=== PATIENT | female | born 1950 | race Caucasian/White ===

== ENCOUNTER 2022-02-18 11:09 | Emergency (ER) | payer MEDICARE, MEDICAID, SELFPAY ==
[2022-02-18] VITALS (25 sets, daily range): BP systolic 88–133; BP diastolic 39–89; PULSE 75–204; RESP 10–23; TEMP 37.2; O2SAT 95–97
--- NOTE | 2022-02-18 11:00 | RT.EKG_ITS ---
APPROVED REPORT Exam: Resting ECG Reason for Exam: Syncope Patient Location: E HR:185 bpm ECG Measurements Heart Rate [address] 62 P 0 QRSd 88 QRS 18 QT 278 T -25 QTc 488 Conclusion Supraventricular tachycardia...V-rate>(220-age), QRSd<120 Repolarization abnormality, prob rate related...ST dep, T neg, tachycardia narrow complex, regular tachycardia, likley SVT
--- NOTE | 2022-02-18 11:22 | DI.CT_ITS ---
Exam(s) CT CHEST PE ABD PELVIS W EXAM: CT CHEST PE ABD PELVIS W CLINICAL HISTORY: tachy, hypoension, concern for PE. TECHNIQUE: Imaging Protocol: Axial CT angiography was performed with multi-slice acquisition and m ulti-planar and/or 3D reconstructions. CONTRAST MATERIAL: Intravenous: Omnipaque 350 Contrast volume:100 ml Oral: None COMPARISON: No exams were available for comparison FINDINGS: CHEST: PULMONARY ARTERIES: There are no intra-arterial filling defects to suggest the presence of acute pulm onary emboli. LUNGS: There is no evidence of pulmonary infarction.There is a 4 millimeter nodule in the lateral bas al segment of the right lower lobe. Pleural based density in the right upper lobe measuring 5 x 4 mi llimeters. No focal nodules in the left lung. Mild increased markings both lungs no confluent infil trates and no pleural effusions. No significant findings in trachea and mainstem bronchi. MEDIASTINUM: There is no hilar nor mediastinal adenopathy. Visualized thyroid unremarkable. CARDIAC: Heart size is normal. There is no pericardial effusion. There is no significant shift of t he interventricular septum.Caliber of the thoracic aorta is within normal limits. No dissection. OSSEOUS: No significant osseous lesions.. ABDOMEN: There is no ascites. LIVER: There are no focal hepatic lesions nor dilatation of intrahepatic ducts. GALLBLADDER/BILIARY: Gallstones noted. No gallbladder wall edema. No pericholecystic fluid. CBD is not dilated. PANCREAS: No evidence of pancreatic mass nor dilatation of the pancreatic duct. SPLEEN: Spleen is not enlarged. There are no intrasplenic lesions. Splenic and portal veins are hickman nt. ADRENALS: There are no significant adrenal masses. KIDNEYS:There is a benign cyst in the anterior cortex the left kidney which measures 2.6 by 2.2 cm. Smaller sub cm cortical cysts are also noted in both kidneys. No solid renal masses nor calculi. No hydronephrosis. No hydroureter.. ABDOMINAL AORTA: Abdominal aorta is not enlarged. LYMPH NODES: There is no retroperitoneal or para-aortic adenopathy. ABDOMINAL WALL/GI: Evidence of anterior abdominal hernia repair. No active hernias evident. Also no significant inguinal hernia. Evidence of previous inguinal hernia repair also evident. No bowel ob struction. PELVIS: LYMPH NODES: There is no intrapelvic nor inguinal adenopathy. GI: No evidence of appendicitis.Sigmoid diverticulosis. There is also evidence of acute diverticulit is.. Some adjacent fluid noted. No free air. No gas in the adjacent urinary bladder to suggest fis tulous communication. URINARY BLADDER: No calculi nor masses evident REPRODUCTIVE: Uterus is surgically absent. No adnexal masses OSSEOUS: No significant osseous lesions. Mild degenerative anterolisthesis L4 upon L5. No disc space narrowing at this level nor elsewhere in the lumbar spine. IMPRESSION: 1. No evidence of acute pulmonary emboli nor pulmonary infarction. Two small nodular densities in th e right lung are noted which will require follow-up. 2. There are no pleural effusions.No intrathoracic adenopathy. 3. Cholelithiasis without evidence of acute cholecystitis nor dilatation of the biliary tree. 4. Acute sigmoid diverticulitis noted. Some adjacent fluid is noted. No formed abscess at this time . 5. No evidence of appendicitis. 6. Benign renal cysts which require no further workup. Report called by myself to ER physician RADIATION DOSE DELIVERED: Total DLP DATA REPOSITORY: All CT scans at this facility are submitted to the National Radiology Data Registry (NRDR) Dose Index Registry (DIR) with the [employer] (ACR). RADIATION OPTIMIZATION: All CT scans at this facility use at least one of these dose optimization te chniques: automated exposure control; mA and/or kV adjustment per patient size (includes targeted exa ms where dose is matched to clinical indication); or iterative reconstruction.
--- NOTE | 2022-02-18 11:28 | W.ED.GENAD ---
Discharge Plan Disposition Patient Disposition: Home Condition: Improving Discharge Details Chief Complaint: Dizzy/Sync Clinical Impression: Paroxysmal supraventricular tachycardia, Gallstones Primary Care Provider: Meme Hall ED Provider: Godfrey Ko Home Meds and New Rx's Prescriptions: No Action torsemide 10 mg Tablet 10 mg PO DAILY omeprazole 40 mg Capsule,Delayed Release(Dr/Ec) 40 mg PO DAILY amoxicillin-pot clavulanate 875-125 mg Tablet 1 tab PO BID Rx Instructions: take for 6 days Discharge Instructions Instructions: Supraventricular Tachycardia (ED) Additional Instructions: Please follow-up with cardiology regarding your tachycardia. Please continue take your antibiotics for diverticulitis. He also be given a referral to general surgery for further evaluation of your gallbladder and GI referral for your esophageal dysmotility disorder. Please return to the emergency department for any worsening symptoms. Medical Decision Making 71-year-old female recent admission at [facility] for biliary issue, discharged on antibiotics, presents with near syncopal episode over the past several days, both at rest and during activity; denies chest pain, noted to be moderately tachypneic, tachycardia on the monitor regular narrow complex in the 190s to 200s, apparent P waves in some leads on EKG however anterior leads showing no P waves, consider sinus tachycardia versus SVT given recent hospitalization tachypnea tachycardia must consider PE versus electrolyte abnormality versus dehydration less likely primary ACS, trial of fluids, stat CT PE will also obtain CT abdomen pelvis to assess for intra-abdominal infectious process, if not responsive to fluids given multiple soft blood pressure readings will likely administer adenosine. Disposition pending reassessment result 13: 11 patient resting comfortably has actually converted to sinus rhythm 73 bpm nonischemic, I believe between fluid therapy as well as breath-holding during CT patient self converted. Chest pain-free no tachypnea no shortness of breath hemodynamically stable. Patient endorses poor p.o. intake and hydration due to esophageal motility disorder. Likely combination of mild dehydration and currently recovering from diverticulitis that triggered patient's SVT. Will be given cardiology referral for outpatient evaluation. Patient also requesting general surgery referral given her gallstones. Also given a GI referral due to GI dysmotility issue. Sign Out No HPI General Date/Time Provider Initiated Documentation: 02/18/22 11:11. HPI Narrative: 71-year-old female recent hospitalization for biliary issue at [facility], presents with near syncopal episodes over the past several days. Denies chest pain endorses mild shortness of breath however believes is related to her mask. Endorses chronic bilateral lower extremity leg swelling. Did not have any surgery however was placed on antibiotics at [facility]. Has not syncopized but feels near syncopal even at rest Related Data Home Medications Medication Instructions Recorded Confirmed amoxicillin 875 mg-potassium 1 tab PO BID 02/18/22 02/18/22 clavulanate 125 mg tablet omeprazole 40 mg capsule,delayed 40 mg PO DAILY 02/18/22 02/18/22 release torsemide 10 mg tablet 10 mg PO DAILY 02/18/22 02/18/22 General Stated Complaint: Dizzy/Sync CLIF: 2 Review of Systems Narrative: Review of Systems Constitutional: negative Eyes: negative ENT: negative Cardiovascular: Tachycardia, near syncope Respiratory: negative Gastrointestinal: negative : negative Musculoskeletal: negative Skin: negative Neurologic: negative Psych: negative PFSH All Active Problems (Updated 02/18/22 @ 13:14 by Godfrey Ko MD) Paroxysmal supraventricular tachycardia (Acute) Gallstones (Acute) Social History Smoking/Tobacco Use Status: Never Smoking risk assessment performed?: Yes Alcohol Intake: current Alcohol Intake frequency: holidays/special occasions only Alcohol type: beer Drug use: Never Substance use type: does not use Exam Narrative Exam Narrative: Physical Examination General: alert, awake, cooperative, mild distress HEENT: normocephalic, atraumatic; PERRL, EOM intact, conjunctiva normal; no nasal discharge; moist mucous membranes, oral and pharyngeal mucosa normal, tolerating secretions Neck: supple, trachea midline; full ROM Chest: normal to inspection Respiratory: Moderately tachypneic Cardiac: Tachycardia, regular rhythm, S1S2 intact, no murmurs rubs or gallops GI: abdomen soft, non-tender, non-distended; no palpable mass or hepatosplenomegaly Skin: no lesions, rashes or trauma appreciated Neuro: AAOx3, normal speech, moving all extremities Extremities: Minimal peripheral edema to bilateral ankles Psych: Appropriate mood and affect Course Vital Signs Vital signs: Vital Signs Temperature 37.2 C 02/18/22 11:14 Pulse 188 H 02/18/22 11:14 Respiratory Rate 20 02/18/22 11:14 Pulse Oximetry 97 02/18/22 11:14 Temperature 37.2 C 02/18/22 11:14 Temperature Source Temporal Artery Scan 02/18/22 11:14 Pulse 188 H 02/18/22 11:14 Respiratory Rate 23 02/18/22 11:20 Respiratory Effort 02/18/22 11:20 Respiratory Depth Normal 02/18/22 11:20 Respiratory Pattern Normal 02/18/22 11:20 Pulse Oximetry 97 02/18/22 11:14 Pain Level 0 02/18/22 11:14
[2022-02-18 11:48] LABS: Abs Immature Grans 0.06 10^3/uL (0.0-0.06); Absolute Basophil Count 0.03 10^3/uL (0.0-0.2); Absolute Eosinophil Count 0.14 10^3/uL (0.0-0.7); Absolute Lymphocyte Count 1.72 10^3/uL (1.2-3.4); Absolute Monocyte Count 0.95 10^3/uL (0.1-0.8); Absolute Neutrophil Count 5.48 10^3/uL (1.2-6.7); Basophils % 0.4; Eosinophils % 1.7; HCT 43.2 % (36.0-46.0); HGB 14.7 g/dL (11.2-15.7); Immature Grans % 0.7; Lymphocytes % 20.5; MCH 31.3 pg (27.0-33.0); MCV 92 fL (80-95); MPV 10.5 fL (8.0-11.0); Monocytes % 11.3; Neutrophils % 65.4; Platelet Count 378 10^3/uL (130-400); RBC 4.69 10^6/uL (3.93-5.22); RDW 12.4 % (11.7-14.6); RDW-SD 41.3 fL; WBC 8.38 10^3/uL (4.4-10.8)
[2022-02-18] MEDS: Normal Saline - Diluent 50 ML VIAL IJ (11:52)
[2022-02-18] MEDS: Omnipaque 350 MG/ML 100 ML BTL IJ (11:52)
[2022-02-18 12:06] LABS: INR 1.1 (0.9-1.1); PTT Activated 27.5 sec (21.0-27.5); Prothrombin Time 10.8 sec (9.3-11.0)
[2022-02-18] MEDS: Normal Saline 1,000 ML 1000 ML IV (12:09)
[2022-02-18 12:14] LABS: ALT 71 U/L (14-59); AST 55 U/L (15-37); Albumin 3.6 g/dL (3.4-5.0); Alkaline Phosphatase 154 U/L (46-116); Anion Gap 9.4 mmol/L (3-11); BUN 10 mg/dL (7-18); Bilirubin, Total 0.9 mg/dL (0.2-1.0); CO2 29.6 mmol/L (21.0-32.0); Calcium 9.6 mg/dL (8.5-10.1); Chloride 101 mmol/L (98-107); Estimated GFR 59.49 (mL/min/1.73m2); Glucose 138 mg/dL (74-106); Magnesium 1.8 mg/dL (1.8-2.4); NT-proBNP 298 pg/mL (<300); Potassium 3.3 mmol/L (3.5-5.1); Sodium 140 mmol/L (136-145); TSH (W/Ref FT4) 1.99 uIU/mL (0.36-3.74); Total Protein 7.6 g/dL (6.4-8.2); Troponin I < 50 ng/L (<or=60)
[2022-02-18 12:20] LABS: Bilirubin Negative (Negative); Blood Negative (Negative); Clarity Clear (Clear); Glucose Negative (Negative); Ketones Negative (Negative); Leukocyte Esterase Negative (Negative); Nitrite Negative (Negative); Urobilinogen 0.2 EU/dL (Up TO 0.2)
--- NOTE | 2022-02-18 12:30 | RT.EKG_ITS ---
APPROVED REPORT Exam: Resting ECG Reason for Exam: converted to sinus rhythm Patient Location: E HR:73 bpm ECG Measurements Heart Rate 73 AXIS ID 170 P 41 QRSd 98 QRS -25 QT 400 T 3 QTc 442 Conclusion Sinus rhythm...normal P axis, V-rate 60- 99 sinus rhythm, left axis, normal intervals, non ischemic
[2022-02-18 12:34] LABS: *AMPHETAMINES SCREEN URINE Negative (Negative); *BARBITURATES SCREEN URINE Negative (Negative); *BENZODIAZEPINES SCREEN URINE Negative (Negative); Cannabinoids THC Negative (Negative); Cocaine Screen,Urine Negative (Negative); METHADONE URINE SCREEN Negative (Negative); OPIATES URINE SCREEN Negative (Negative)
[2022-02-18 12:35] LABS: Tricyclic Antidepressants Negative (Negative)
--- NOTE | 2022-02-19 00:53 | NUR.NOTE ---
Referral to Care Management, patient is from the [facility] and needs to f/u with cardiology for svt, general surgery for gallstones and GI for esophageal dysmotility disorder.Nursing Note:
--- NOTE | 2022-02-22 13:08 | PDOC.ERCMACT ---
- If Service Date Differs Date of service: 02/22/22 Time of Service: 13:08 Care Management Activity Note Maria De Jesus presents in the ED for SVT and gallstones. At the request of ED provider, CM coordinates referrals to [facility], [facility] and [facility]. She has Medicaid and Medicare for insurance.
--- NOTE | 2022-02-22 15:21 | NUR.NOTE ---
Nursing Note: [facility] [place] to them. I gave them the information from the provider note and they are going to set up a consultation visit.
== END 2022-02-18 13:30 | disposition home or self-care (01) ==
PROVIDERS: Emergency Provider Emergency Medicine; PCP Internal Medicine
DX: I47.1 Supraventricular tachycardia (principal); K80.20 Calculus of gallbladder without cholecystitis without obstruction; R60.0 Localized edema; R55 Syncope and collapse; R06.82 Tachypnea, not elsewhere classified
CPT/HCPCS: 36415; 71275; 74177; 80053; 80307; 93005; 96360; 99285; 81003; 83735; 83880; 84443; 84484; 85025; 85610; 85730; 93010; J3490

== ENCOUNTER → 2023-05-10 13:51 | Outpatient (BNVA) | payer MEDICARE, MEDICAID, SELFPAY | PROVIDERS: PCP Internal Medicine; Referring Provider Internal Medicine; Visit Provider Internal Medicine Cardiovascular Disease | DX: I47.10 Supraventricular tachycardia, unspecified (principal) | CPT/HCPCS: 99203 ==

== ENCOUNTER 2024-08-07 12:51 | Outpatient (CLI) | payer MEDICARE, MEDICAID, SELFPAY ==
--- NOTE | 2024-08-07 13:15 | RT.EKG_ITS ---
APPROVED REPORT Exam: Resting ECG Reason for Exam: Follow up needed Patient Location: O HR:78 bpm ECG Measurements Heart Rate 78 AXIS ME 166 P 63 QRSd 105 QRS -22 QT 409 T 3 QTc 466 Conclusion Sinus rhythm...normal P axis, V-rate 50- 99 Borderline left axis deviation...QRS axis (-15,-29) Low voltage, precordial leads...precordial leads <1.0mV Abnormal R-wave progression, early transition...QRS area>0 in V2
== END 2024-08-07 12:52 | disposition home or self-care (01) ==
LOC: DI.CARD 13:23
PROVIDERS: PCP Internal Medicine; Referring Provider Internal Medicine; Visit Provider Internal Medicine Cardiovascular Disease
DX: I47.10 Supraventricular tachycardia, unspecified (principal); I48.91 Unspecified atrial fibrillation
CPT/HCPCS: 93010

== ENCOUNTER → 2024-08-07 12:51 | Outpatient (BNVA) | payer MEDICARE, MEDICAID, SELFPAY | PROVIDERS: PCP Internal Medicine; Referring Provider Internal Medicine; Visit Provider Internal Medicine Cardiovascular Disease | DX: I47.10 Supraventricular tachycardia, unspecified (principal); I48.91 Unspecified atrial fibrillation | CPT/HCPCS: 93005; 99214 ==